=== PATIENT | female | born 1995 | race Caucasian/White ===

== ENCOUNTER 2019-03-09 23:30 | Emergency (ER) | payer OTHER, SELFPAY ==
[~2019-03-09] VITALS: Ht 162.6 cm; Wt 50.0 kg
[2019-03-10] MEDS ORDERED: KEFL500C17 PO (00:28)
[2019-03-10] MEDS ORDERED: CEPHALEXIN 500 MG CAP PO ONE (00:30)
[2019-03-10 00:34] VITALS: BP 126/74
== END 2019-03-10 00:37 | disposition home or self-care (01) ==
LOC: M ED 23:30
DX: J03.90 Acute tonsillitis, unspecified (principal)

== ENCOUNTER 2021-10-01 23:28 | Emergency (ER) | payer SELFPAY ==
[~2021-10-01] VITALS: Ht 162.6 cm; Wt 48.6 kg
[~2021-10-01 23:28] MED LIST: KEFL500C17 PO
[2021-10-01 23:30] VITALS: BP 140/55
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
--- OUTSIDE RECORDS SUMMARY | 2021-10-01 23:38 | CCD ---
Author Author [facility] Organization [facility] Address Unknown Phone Unavailable Care Team Providers Care Accounts Receivable Executive Name Role Phone ARROYO, NITHYA SHAJI RPA-C Unavailable Unavailable ARROYO, NITHYA SHAJI RPA-C Unavailable Unavailable ARROYO, NITHYA SHAJI RPA-C Unavailable Unavailable ARROYO, NITHYA SHAJI RPA-C Unavailable Unavailable ARROYO, NITHYA SHAJI RPA-C Unavailable Unavailable ARROYO, NITHYA SHAJI RPA-C Unavailable Unavailable ARROYO, NITHYA SHAJI RPA-C Unavailable Unavailable ARROYO, NITHYA SHAJI RPA-C Unavailable Unavailable ARROYO, NITHYA SHAJI RPA-C Unavailable Unavailable ARROYO, NITHYA SHAJI RPA-C Unavailable Unavailable ARROYO, NITHYA SHAJI RPA-C Unavailable Unavailable ARROYO, NITHYA SHAJI RPA-C Unavailable Unavailable ARROYO, NITHYA SHAJI RPA-C Unavailable Unavailable ARROYO, NITHYA SHAJI RPA-C Unavailable Unavailable ARROYO, NITHYA SHAJI RPA-C Unavailable Unavailable ARROYO, NITHYA SHAJI RPA-C Unavailable Unavailable ARROYO, NITHYA SHAJI RPA-C Unavailable Unavailable ARROYO, NITHYA SHAJI RPA-C Unavailable Unavailable ARROYO, NITHYA SHAJI RPA-C Unavailable Unavailable ARROYO, NITHYA SHAJI RPA-C Unavailable Unavailable ARROYO, NITHYA SHAJI RPA-C Unavailable Unavailable ARROYO, NITHYA SHAJI RPA-C Unavailable Unavailable ARORYO, NITHYA SHAJI RPA-C Unavailable Unavailable ARROYO, NITHYA SHAJI RPA-C Unavailable Unavailable ARROYO, NITHYA SHAJI RPA-C Unavailable Unavailable ARROYO, NITHYA SHAJI RPA-C Unavailable Unavailable ARROYO, NITHYA SHAJI RPA-C Unavailable Unavailable ARROYO, NITHYA SHAJI RPA-C Unavailable Unavailable ARROYO, NITHYA SHAJI RPA-C Unavailable Unavailable ARROYO, NITHYA SHAJI RPA-C Unavailable Unavailable ARROYO, NITHYA SHAJI RPA-C Unavailable Unavailable ARROYO, NITHYA SHAJI RPA-C Unavailable Unavailable ARROYO, NITHYA SHAJI RPA-C Unavailable Unavailable ARROYO, NITHYA SHAJI RPA-C Unavailable Unavailable ARROYO, NITHYA SHAJI RPA-C Unavailable Unavailable ARROYO, NITHYA SHAJI RPA-C Unavailable Unavailable ARROYO, NITHYA SHAJI RPA-C Unavailable Unavailable ARROYO, NITHYA SHAJI RPA-C Unavailable Unavailable ARROYO, NITHYA SHAJI RPA-C Unavailable Unavailable ARROYO, NITHYA SHAJI RPA-C Unavailable Unavailable ARROYO, NITHYA SHAJI RPA-C Unavailable Unavailable ARROYO, NITHYA SHAJI RPA-C Unavailable Unavailable ARROYO, NITHYA SHAJI RPA-C Unavailable Unavailable CANO, G EDWARD RPA Unavailable Unavailable CANO, G EDWARD RPA Unavailable Unavailable CANO, G EDWARD RPA Unavailable Unavailable CANO, G EDWARD RPA Unavailable Unavailable CANO, G EDWARD RPA Unavailable Unavailable CANO, G EDWARD RPA Unavailable Unavailable CANO, G EDWARD RPA Unavailable Unavailable CANO, G EDWARD RPA Unavailable Unavailable CANO, G EDWARD RPA Unavailable Unavailable CANO, G EDWARD RPA Unavailable Unavailable CANO, G EDWARD RPA Unavailable Unavailable CANO, G EDWARD RPA Unavailable Unavailable CANO, G EDWARD RPA Unavailable Unavailable CANO, G EDWARD RPA Unavailable Unavailable CANO, G EDWARD RPA Unavailable Unavailable CANO, G EDWARD RPA Unavailable Unavailable CANO, G EDWARD RPA Unavailable Unavailable CANO, G EDWARD RPA Unavailable Unavailable CANO, G EDWARD RPA Unavailable Unavailable CANO, G EDWARD RPA Unavailable Unavailable CANO, G EDWARD RPA Unavailable Unavailable CANO, G EDWARD RPA Unavailable Unavailable CANO, G EDWARD RPA Unavailable Unavailable CANO, G EDWARD RPA Unavailable Unavailable CANO, G EDWARD RPA Unavailable Unavailable CANO, G EDWARD RPA Unavailable Unavailable CANO, G EDWARD RPA Unavailable Unavailable CANO, G EDWARD RPA Unavailable Unavailable CANO, G EDWARD RPA Unavailable Unavailable CANO, G EDWARD RPA Unavailable Unavailable CANO, G EDWARD RPA Unavailable Unavailable CANO, G EDWARD RPA Unavailable Unavailable CANO, G EDWARD RPA Unavailable Unavailable CANO, G EDWARD RPA Unavailable Unavailable CANO, G EDWARD RPA Unavailable Unavailable Werner CANO RPA Unavailable Unavailable Werner CANO RPA Unavailable Unavailable Re-disclosure Warning The records that you are about to access may contain information from federally-assisted alcohol or drug abuse programs. If such information is present, then the following federally mandated warning applies: This information has been disclosed to you from records protected by federal confidentiality rules (42 CFR part 2). The federal rules prohibit you from making any further disclosure of this information unless further disclosure is expressly permitted by the written consent of the person to whom it pertains or as otherwise permitted by 42 CFR part 2. A general authorization for the release of medical or other information is NOT sufficient for this purpose. The Federal rules restrict any use of the information to criminally investigate or prosecute any alcohol or drug abuse patient.The records that you are about to access may contain highly sensitive health information, the redisclosure of which is protected by Article 27-F of the [facility] Public Health law. If you continue you may have access to information: Regarding HIV / AIDS; Provided by facilities licensed or operated by the [facility] Office of Mental Health; or Provided by the [facility] Office for People With Developmental Disabilities. If such information is present, then the following [facility] mandated warning applies: This information has been disclosed to you from confidential records which are protected by state law. State law prohibits you from making any further disclosure of this information without the specific written consent of the person to whom it pertains, or as otherwise permitted by law. Any unauthorized further disclosure in violation of state law may result in a fine or snf sentence or both. A general authorization for the release of medical or other information is NOT sufficient authorization for further disc losure. Allergies and Adverse Reactions Type Description Substance Reaction Status Data Source(s ) Allergy to substance Moderate Prozac Nausea ATHE NA ([facility]) Encounters Encounter Providers Location Date Indications Data Source(s ) Outpatient 09/12/2021 02:57:48 PM EDT - 021 03:05:25 PM EDT [facility] ([facility]) Shaji Arroyo, RPA-C: [address] [facility], [facility] [address], [place] [address], Ph. Attender: SHAJI MONROE [facility] Medical 09/06/2021 12:00:00 AM EDT [place] ([facility]) Shaji Arroyo RPA-C: [address], [place] [address], Ph. Attender: SHAJI MONROE [facility] Medical 07/24/2021 12:00:00 AM EDT [place] ([facility]) Shaji Arroyo RPA-C: [address], [place] [address], Ph. Attender: SHAJI MONROE [facility] Medical 07/24/2021 12:00:00 AM EDT [place] ([facility]) Outpatient Attender: LIBBY CANO RPA 06/03 03:55:29 PM EDT - 06/03/2021 05:00:55 PM EDT [facility] ([facility] ) Immunizations Vaccine Date Status Description Data Source(s) Tdap 09/06/2021 02:55:00 PM EDT completed 09/06/2021 0.5 mL [facility]) Medications Medication Brand Name Start Date Product Form Dose Route Admi nistrative Instructions Pharmacy Instructions Status Indications Reaction Description Data Source(s) Escitalopram 10 MG Oral Tablet ESCITALOPRAM OXALATE 09/07/2021 1 2:00:00 AM EDT tablet 30 TAKE ONE TABLET BY MOUTH EVERY D AY TAKE ONE TABLET BY MOUTH EVERY DAY SOLD: 09/08/2021 [facility] 150 mg 09/06/2021 12:00:00 AM EDT tablet 1 TAKE 1 TABLET BY MOUTH ONCE TAKE 1 TABLET BY MOUTH ONCE SOLD: 09/08/2021 [facility] ANA Fe 1.5/30 28 Day Pack 1.5 mg-30 mcg (21)/75 mg ( 7) NORETHINDRONE-E.ESTRADIOL-IRON 08/31/2021 12:00:00 AM EDT tablet 84 TAKE ONE TABLET BY MOUTH EVERY DAY TAKE ONE TABLET BY MOUTH EVERY DAY SOLD: 09/01/2021 [facility] 10 mg 07/26/2021 12:00:00 AM EDT capsule 30 TAKE ONE CAPSULE BY MOUTH EVERY DAY TAKE ONE CAPSULE BY MOUTH EVERY DAY SOLD: 07/27/2021 [facility] 875 mg 06/03/2021 12:00:00 AM EDT tablet 20 TAKE ONE TABLET BY MOUTH TWO TIMES A DAY FOR 10 DAYS TAKE ONE TABLET BY MOUTH TWO TIMES A DAY FOR 10 DAYS SOLD: 06/03/2021 [facility] ANA Fe 1.5/30 28 Day Pack 1.5 mg-30 mcg (21)/75 mg ( 7) NORETHINDRONE-E.ESTRADIOL-IRON 05/17/2021 12:00:00 AM EDT tablet 84 TAKE ONE TABLET BY MOUTH EVERY DAY TAKE ONE TABLET BY MOUTH EVERY DAY SOLD: 06/03/2021 [facility] 100 mg 02/21/2021 12:00:00 AM EDT capsule 10 TAKE ONE CAPSULE BY MOUTH EVERY 12 HOURS FOR 5 DAYS TAKE ONE CAPSULE BY MOUTH EVERY 12 HOURS FOR 5 DAYS SO LD: 02/22/2021 [facility] 100 mg 01/21/2021 12:00:00 AM EST capsule 10 TAKE ONE CAPSULE BY MOUTH TWICE A DAY FOR 5 DAYS TAKE ONE CAPSULE BY MOUTH TWICE A DAY FOR 5 DAYS SOLD: 01/21/2021 [facility] Fluoxetine 10 MG Oral Capsule [Prozac] P rozac 10 mg capsule Take 1 capsule every day by oral route. Prozac 10 mg capsule Take 1 capsule ever y day by oral route. 1 capsule(s) completed fluoxetin e 10 MG Oral Capsule [Prozac] DAVID ([facility]) NITROFURANTOIN, MACROCRYSTALS 25 MG / Ni trofurantoin, Monohydrate 75 MG Oral Capsule nitrofurantoin monohydrate/macrocrystals 100 mg capsule TAKE ONE CAPSULE BY MOUTH EVERY 12 HOURS FOR 5 DAYS nitrofurantoin monohydrate/macrocrystals 100 mg capsule TAKE ONE CAPSULE BY MOUTH EVERY 12 HOURS FOR 5 DAYS completed nitrofurantoin, macr ocrystals 25 MG / nitrofurantoin, monohydrate 75 MG Oral Capsule DAVID ([facility]) NITROFURANTOIN, MACROCRYSTALS 25 MG / Ni trofurantoin, Monohydrate 75 MG Oral Capsule nitrofurantoin monohydrate/macrocrystals 100 mg capsule TAKE ONE CAPSULE BY MOUTH EVERY 12 HOURS FOR 5 DAYS nitrofurantoin monohydrate/macrocrystals 100 mg capsule TAKE ONE CAPSULE BY MOUTH EVERY 12 HOURS FOR 5 DAYS completed nitrofurantoin, macr ocrystals 25 MG / nitrofurantoin, monohydrate 75 MG Oral Capsule DAV[facility] ([facility]) Amoxicillin 875 MG Oral Tablet amoxicill in 875 mg tablet TAKE ONE TABLET BY MOUTH TWO TIMES A DAY FOR 10 DAYS amoxicillin 875 mg tablet TAKE ONE TABLE T BY MOUTH TWO TIMES A DAY FOR 10 DAYS comp leted amoxicillin 875 MG Oral Tablet [facility] ([facility]) Amoxicillin 875 MG Oral Tablet amoxicill in 875 mg tablet TAKE ONE TABLET BY MOUTH TWO TIMES A DAY FOR 10 DAYS amoxicillin 875 mg tablet TAKE ONE TABLE T BY MOUTH TWO TIMES A DAY FOR 10 DAYS comp leted amoxicillin 875 MG Oral Tablet [place] ([facility]) Insurance Providers Payer name Policy type / Coverage type Policy ID Covered democrat ID Covered democrat's relationship to gordon Policy Gordon Plan Information [email or web address] [id number] Self [id number] [employer] [id number] Self [id number] SELF PAY ONLY [id number] [facility] [id number] [facility] [id number] Problems, Conditions, and Diagnoses No Information Surgeries/Procedures No Information Results ID Date Data Source [id number] 09/12/2021 03:15:00 PM EDT [facility] Name Value Range Interpretation Code Description Data Bozena rce(s) Supporting Document(s) SARS-CoV-2 RNA Resp Ql JULIANA+probe NOT DETECTED [facility] This lab was ordered by GREG winslow and reported by GREG Brown. ID Date Data Source [id number] 09/06/2021 02:44:00 PM EDT [place] ([facility]) Name Value Range Interpretation Code Description Data Bozena rce(s) Supporting Document(s) bilirubin neg Bilirubin [place] ([facility]) leukocytes neg Leukocytes [place] ([facility]) blood neg Blood [facility] ([facility]) glucose neg Glucose [facility] ([facility]) nitrite neg Nitrite [facility] ([facility]) ketone neg Ketone [facility] ([facility]) specific gravity Specific [place] AT [facility] ([facility]) protein neg Protein [facility] ([facility]) pH Ph [facility] ([facility]) urobilinogen Urobilinogen [facility] ([facility]) ID Date Data Source [id number] 09/06/2021 02:30:00 PM EDT [facility] ([facility]) Name Value Range Interpretation Code Description Data Bozena rce(s) Supporting Document(s) Bacteria identified in Urine by Culture Culture, Urine, Routine [facility] ([facility]) ID Date Data Source [id number] 09/06/2021 02:30:00 PM EDT [facility] ([facility]) Name Value Range Interpretation Code Description Data Bozena rce(s) Supporting Document(s) Service comment Comment [facility] ([facility]) Procedure Social History No Information Vital Signs ID Date Data Source UNK Name Value Range Interpretation Code Description Data Source(s) Diastolic blood pressure 74 mm[Hg] 74 mm[Hg] [facility] ([facility]) Body height 63 [in_i] 63 [in_i] [facility] ([facility]) Body mass index (BMI) [Ratio] 18.9 kg/m2 18.9 k g/m2 [facility] ([facility]) Systolic blood pressure 109 mm[Hg] 109 mm[Hg] A THENA ([facility]) Body weight 1705.6 [oz_av] 1705.6 [oz_av] ATHEN A ([facility]) Diastolic blood pressure 76 mm[Hg] 76 mm[Hg] [facility] ([facility]) Body height 63 [in_i] 63 [in_i] [facility] ([facility]) Body mass index (BMI) [Ratio] 19 kg/m2 19 kg/ m2 [facility] ([facility]) Systolic blood pressure 116 mm[Hg] 116 mm[Hg] A BARB ([facility]) Body weight 1712 [oz_av] 1712 [oz_av] DAVID ([facility]) Diastolic blood pressure 76 mm[Hg] 76 mm[Hg] DAV[facility] ([facility]) Body height 63 [in_i] 63 [in_i] [facility] ([facility]) Body mass index (BMI) [Ratio] 19 kg/m2 19 kg/ m2 [facility] ([facility]) Systolic blood pressure 116 mm[Hg] 116 mm[Hg] A BARB ([facility]) Body weight 1712 [oz_av] 1712 [oz_av] [facility]ID ([facility]) Patient Treatment Plan of Care Planned Activity Planned Date Details Description Data Source (s) Fluoxetine 10 MG Oral Capsule [Prozac] [facility] ([facility]) NITROFURANTOIN, MACROCRYSTALS 25 MG / Ni trofurantoin, Monohydrate 75 MG Oral Capsule [facility] ([facility]) Amoxicillin 875 MG Oral Tablet [facility] ([facility]) NITROFURANTOIN, MACROCRYSTALS 25 MG / Ni trofurantoin, Monohydrate 75 MG Oral Capsule [facility] ([facility]) Amoxicillin 875 MG Oral Tablet [facility] ([facility])
--- OUTSIDE RECORDS SUMMARY | 2021-10-02 03:07 | CCD ---
Author Author [facility] Organization [facility] Address Unknown Phone Unavailable Care Team Providers Care Acute Dialysis Nurse Name Role Phone ARROYO, NITHYA SHAJI RPA-C Unavailable Unavailable ARROYO, NITHYA SHAJI RPA-C Unavailable Unavailable ARROYO, NITHYA SHAJI RPA-C Unavailable Unavailable ARROYO, NITHYA SHAJI RPA-C Unavailable Unavailable ARROYO, NITHYA SHAJI RPA-C Unavailable Unavailable ARROYO, NITHYA SHAJI RPA-C Unavailable Unavailable ARROYO, NITYHA SHAJI RPA-C Unavailable Unavailable ARROYO, NITHYA SHAJI [...] ARROYO, NITHYA SHAJI RPA-C Unavailable Unavailable ARROYO, NITHAY SHAJI RPA-C Unavailable Unavailable ARROYO, NITHYA SHAJI [...] is protected by Article 27-F of the [facility] Public Health law. If you continue you may have access to information: Regarding HIV / AIDS; Provided by facilities licensed or operated by the [facility] Office of Mental Health; or Provided by the [facility] Office for People With Developmental Disabilities. If such information is present, then the following [facility] mandated warning applies: This information has [...] law may result in a fine or fdc sentence or both. A general authorization for the release of medical or other information is NOT sufficient authorization for further disc losure. Allergies and Adverse Reactions Type Description Substance Reaction Status Data Source(s ) Allergy to substance Moderate Prozac Nausea ATHE NA ([facility]) Encounters Encounter Providers Location Date Indications Data Source(s ) Outpatient 09/12/2021 02:57:48 PM EDT - 021 03:05:25 PM EDT [facility] ([facility]) Shaji Arroyo, RPA-C: [address] [facility] [address], [facility] [address], [place] [address], Ph. Attender: SHAJI [facility] Medical 09/06/2021 12:00:00 AM EDT [facility] Shaji Arroyo RPA-C: [address], [place] [address], Ph. Attender: SHAJI [facility] Medical 07/24/2021 12:00:00 AM EDT [facility]) Shaji Arroyo RPA-C: [address], [place] [address], Ph. Attender: SHAJI [facility] Medical 07/24/2021 12:00:00 AM EDT [facility]) Outpatient Attender: LIBBY CANO RPA 06/03 03:55:29 PM EDT - 06/03/2021 05:00:55 PM EDT [facility] ([facility] ) Immunizations Vaccine Date Status Description Data Source(s) Tdap 09/06/2021 02:55:00 PM EDT completed 09/06/2021 0.5 mL [facility]) Medications Medication Brand Name Start Date Product [...] A DAY FOR 10 DAYS SOLD: 06/03/2021 [facility] ANA Fe 1.5/30 28 Day Pack 1.5 mg-30 mcg (21)/75 mg ( 7) NORETHINDRONE-E.ESTRADIOL-IRON 05/17/2021 12:00:00 AM EDT tablet 84 TAKE ONE TABLET BY MOUTH EVERY DAY TAKE ONE TABLET BY MOUTH EVERY DAY SOLD: 06/03/2021 [facility] 100 mg 02/21/2021 12:00:00 AM EDT [...] A DAY FOR 5 DAYS SOLD: 01/21/2021 [facility] Fluoxetine 10 MG Oral Capsule [Prozac] P rozac 10 mg capsule Take 1 capsule every day by oral route. Prozac 10 mg capsule Take 1 capsule ever y day by oral route. 1 capsule(s) completed fluoxetin e 10 MG Oral Capsule [Prozac] DAVID ([facility]) NITROFURANTOIN, MACROCRYSTALS 25 MG / Ni trofurantoin, Monohydrate 75 MG Oral Capsule nitrofurantoin monohydrate/macrocrystals 100 mg capsule TAKE ONE CAPSULE BY MOUTH EVERY 12 HOURS FOR 5 DAYS nitrofurantoin monohydrate/macrocrystals 100 mg capsule TAKE ONE CAPSULE BY MOUTH EVERY 12 HOURS FOR 5 DAYS completed nitrofurantoin, macr ocrystals 25 MG / nitrofurantoin, monohydrate 75 MG Oral Capsule DAV[facility] ([facility]) NITROFURANTOIN, MACROCRYSTALS 25 MG / Ni trofurantoin, Monohydrate 75 MG Oral Capsule nitrofurantoin monohydrate/macrocrystals 100 mg capsule TAKE ONE CAPSULE BY MOUTH EVERY 12 HOURS FOR 5 DAYS nitrofurantoin monohydrate/macrocrystals 100 mg capsule TAKE ONE CAPSULE BY MOUTH EVERY 12 HOURS FOR 5 DAYS completed nitrofurantoin, macr ocrystals 25 MG / nitrofurantoin, monohydrate 75 MG Oral Capsule DAVID ([facility]) Amoxicillin 875 MG Oral Tablet amoxicill in 875 mg tablet TAKE ONE TABLET BY MOUTH TWO TIMES A DAY FOR 10 DAYS amoxicillin 875 mg tablet TAKE ONE TABLE T BY MOUTH TWO TIMES A DAY FOR 10 DAYS comp leted amoxicillin 875 MG Oral Tablet DAVID ([facility]) Amoxicillin 875 MG Oral Tablet amoxicill in 875 mg tablet TAKE ONE TABLET BY MOUTH TWO TIMES A DAY FOR 10 DAYS amoxicillin 875 mg tablet TAKE ONE TABLE T BY MOUTH TWO TIMES A DAY FOR 10 DAYS comp leted amoxicillin 875 MG Oral Tablet [place] ([facility]) Insurance Providers Payer name Policy type / Coverage type Policy ID Covered green party ID Covered green party's relationship to gordon Policy Gordon Plan Information [employer] [id number] Self [id number] [employer] [id number] Self [id number] SELF PAY ONLY [id number] [facility] [id number] [facility] [id number] Problems, Conditions, and Diagnoses No Information Surgeries/Procedures No Information Results ID Date Data Source [id number] 09/12/2021 03:15:00 PM EDT [facility] Name Value Range Interpretation Code Description Data Bozena rce(s) Supporting Document(s) SARS-CoV-2 RNA Resp Ql JULIANA+probe NOT DETECTED [facility] This lab was ordered by GREG winslow and reported by GREG Brown. ID Date Data Source [id number] 09/06/2021 02:44:00 PM EDT [place] ([facility]) Name Value Range Interpretation Code Description Data Bozena rce(s) Supporting Document(s) bilirubin neg Bilirubin [place] ([facility]) leukocytes neg Leukocytes [place] ([facility]) blood neg Blood DAVID ([facility]) glucose neg Glucose [facility] ([facility]) nitrite neg Nitrite [facility] ([facility]) ketone neg Ketone [facility] ([facility]) specific gravity Specific [place] [facility] ([facility]) protein neg Protein DAVID ([facility]) pH Ph [facility] ([facility]) urobilinogen Urobilinogen [facility] ([facility]) ID Date Data Source [id number] 09/06/2021 02:30:00 PM EDT DAV[facility] ([facility]) Name Value Range Interpretation Code Description Data Bozena rce(s) Supporting Document(s) Bacteria identified in Urine by Culture Culture, Urine, Routine DAVID ([facility]) ID Date Data Source [id number] 09/06/2021 02:30:00 PM EDT DAVID ([facility]) Name Value Range Interpretation Code Description Data Bozena rce(s) Supporting Document(s) Service comment Comment DAVID ([facility]) Procedure Social History No Information Vital Signs ID Date Data Source UNK Name Value Range Interpretation Code Description Data Source(s) Diastolic blood pressure 74 mm[Hg] 74 mm[Hg] DAVID ([facility]) Body height 63 [in_i] 63 [in_i] DAVID ([facility]) Body mass index (BMI) [Ratio] 18.9 kg/m2 18.9 k g/m2 DAV[facility] ([facility]) Systolic blood pressure 109 mm[Hg] 109 mm[Hg] A THENA ([facility]) Body weight 1705.6 [oz_av] 1705.6 [oz_av] ATHEN A ([facility]) Diastolic blood pressure 76 mm[Hg] 76 mm[Hg] DAVID ([facility]) Body height 63 [in_i] 63 [in_i] DAVID ([facility]) Body mass index (BMI) [Ratio] 19 kg/m2 19 kg/ m2 DAV[facility] ([facility]) Systolic blood pressure 116 mm[Hg] 116 mm[Hg] A BARB ([facility]) Body weight 1712 [oz_av] 1712 [oz_av] DAVID ([facility]) Diastolic blood pressure 76 mm[Hg] 76 mm[Hg] DAVID ([facility]) Body height 63 [in_i] 63 [in_i] DAVID ([facility]) Body mass index (BMI) [Ratio] 19 kg/m2 19 kg/ m2 DAV[facility] ([facility]) Systolic blood pressure 116 mm[Hg] 116 mm[Hg] A BARB ([facility]) Body weight 1712 [oz_av] 1712 [oz_av] DAVID ([facility]) Patient Treatment Plan of Care Planned Activity Planned Date Details Description Data Source (s) Fluoxetine 10 MG Oral Capsule [Prozac] [facility] ([facility]) NITROFURANTOIN, MACROCRYSTALS 25 MG / Ni trofurantoin, Monohydrate 75 MG Oral Capsule DAV[facility] ([facility]) Amoxicillin 875 MG Oral Tablet DAV[facility] ([facility]) NITROFURANTOIN, MACROCRYSTALS 25 MG / Ni trofurantoin, Monohydrate 75 MG Oral Capsule DAV[facility] ([facility]) Amoxicillin 875 MG Oral Tablet DAV[facility] ([facility])
== END 2021-10-02 02:50 | disposition left against medical advice (07) ==
LOC: M ED 23:28
DX: Z53.21 Procedure and treatment not carried out due to patient leaving prior to being seen by health care provider (principal)

== ENCOUNTER → 2023-02-06 | Outpatient (CLI) | payer OTHER, SELFPAY ==
[~2023-02-06] MED LIST changes: +LARI1TAB; +LEXA1TAB2 PO
== END ==
LOC: M LABSMTC 07:37
PROVIDERS: ATTEND Anesthesiology
DX: Z01.812 Encounter for preprocedural laboratory examination (principal); Z20.822 Contact with and (suspected) exposure to COVID-19

== ENCOUNTER 2023-02-11 08:03 | Day surgery (SDC) | payer OTHER ==
[~2023-02-11] VITALS: Ht 160 cm; Wt 44.9 kg
[~2023-02-11 08:03] MED LIST changes: +HYDR-643 PO; +NS 1,000 ML IV ONE
[2023-02-11] MEDS ORDERED: propofoL 200 MG/20 ML VIAL As Ordered ONE (08:26)
[2023-02-11] MEDS ORDERED: LIDOCAINE 2% 100MG/5ML SDV (FOR ANES.) As Ordered ONE (08:26)
[2023-02-11 09:25] VITALS: BP 102/66
== END 2023-02-11 09:31 | disposition home or self-care (01) ==
LOC: M OPP 08:03
PROVIDERS: ATTEND Surgery
DX: K64.1 Second degree hemorrhoids (principal); K92.1 Melena; Z79.3 Long term (current) use of hormonal contraceptives; Z79.52 Long term (current) use of systemic steroids; Z79.899 Other long term (current) drug therapy; Z88.8 Allergy status to other drugs, medicaments and biological substances

== ENCOUNTER → 2023-02-25 | Outpatient (CLI) | payer OTHER ==
[~2023-02-25] MED LIST changes: -NS 1,000 ML IV ONE
== END ==
LOC: M PLAIMG 13:08
PROVIDERS: ATTEND Physician Assistant
DX: R07.81 Pleurodynia (principal)

== ENCOUNTER → 2023-03-02 | Outpatient (REF) | payer OTHER ==
[2023-03-02 17:55] LABS: GC DNA AMPLIFICATION NEGATIVE (NEGATIVE)
[2023-03-02 20:36] LABS: MEAN CORPUSCULAR HGB CONC 33.3 g/dl (32.0-36.5); MEAN CORPUSCULAR VOLUME 89.9 fl (80.0-96.0); PLATELET COUNT, AUTOMATED 252 10^3/uL (150-450); RED BLOOD COUNT 4.67 10^6/uL (4.00-5.40); WHITE BLOOD COUNT 5.5 10^3/uL (4.0-10.0)
[2023-03-02 20:57] LABS: ALBUMIN 3.6 G/DL (3.2-5.2); ALKALINE PHOSPHATASE 54 U/L (46-116); ALT/SGPT 27 U/L (7.0-40); AST/SGOT 22 U/L (<34); BILIRUBIN,TOTAL 0.5 MG/DL (0.3-1.2); BLOOD UREA NITROGEN 11 MG/DL (9-23); CALCIUM LEVEL 8.8 MG/DL (8.5-10.1); CARBON DIOXIDE LEVEL 25 MMOL/L (20-31); CHLORIDE LEVEL 104 MMOL/L (98-107); CREATININE FOR GFR 0.63 MG/DL (0.55-1.30); GLOMERULAR FILTRATION RATE > 60.0 (>60); GLUCOSE, FASTING 65 MG/DL (60-100); POTASSIUM SERUM 3.9 MMOL/L (3.5-5.1); SODIUM LEVEL 139 MMOL/L (136-145); TOTAL PROTEIN 7.2 G/DL (5.7-8.2)
[2023-03-02 20:58] LABS: THYROID STIMULATING HORMONE 2.193 uIU/ML (0.55-4.78)
[2023-03-02 20:59] LABS: FOLLICLE STIMULATING HORMONE 0.4 mIU/ML; LUTEINIZING HORMONE < 0.1 mIU/ML; TOTAL 25(OH) VITAMIN D 14.8 NG/ML (20.0-100.0)
[2023-03-02 21:00] LABS: PROGESTERONE 0.49 NG/ML
[2023-03-02 21:31] LABS: HEPATITIS C VIRUS ABY INDEX 0.1 INDEX (<0.8)
[2023-03-02 21:35] LABS: ATYPICAL LYMPH 5 % (0-5); BASOPHILS 1 % (0-1); LYMPHOCYTES 33 % (16-44); MONOCYTES 4 % (0-5); NEUTROPHILS 56 % (28-66)
[2023-03-02 21:36] LABS: PLATELET ESTIMATE NORMAL (NORMAL)
[2023-03-02 21:51] LABS: HCG, SERUM QUALITATIVE NEGATIVE (NEGATIVE)
== END ==
LOC: M LAB REF 15:37
PROVIDERS: ATTEND Physician Assistant
DX: Z11.59 Encounter for screening for other viral diseases (principal); K13.70 Unspecified lesions of oral mucosa; K12.1 Other forms of stomatitis; R10.11 Right upper quadrant pain; R11.2 Nausea with vomiting, unspecified; R63.0 Anorexia; R53.81 Other malaise; R53.83 Other fatigue; N91.2 Amenorrhea, unspecified; E55.9 Vitamin D deficiency, unspecified

== ENCOUNTER → 2023-04-03 | Outpatient (CLI) | payer OTHER | LOC: M RAD 08:11 | PROVIDERS: ATTEND Physician Assistant | DX: R10.11 Right upper quadrant pain (principal); R63.0 Anorexia; R11.2 Nausea with vomiting, unspecified ==

== ENCOUNTER → 2023-07-08 | Outpatient (REF) | payer OTHER | LOC: M SFHCWAGY 17:16 | PROVIDERS: ATTEND Nurse Practitioner Family | DX: Z12.4 Encounter for screening for malignant neoplasm of cervix (principal) ==

== ENCOUNTER → 2024-05-25 | Outpatient (REF) | payer OTHER ==
[2024-05-25 18:48] LABS: HEMATOCRIT 42.1 % (36.0-47.0); HEMOGLOBIN 14.1 g/dl (12.0-15.5); MEAN CORPUSCULAR HEMOGLOBIN 31.8 pg (27.0-33.0); MEAN CORPUSCULAR HGB CONC 33.5 g/dl (32.0-36.5); MEAN CORPUSCULAR VOLUME 94.8 fl (80.0-96.0); PLATELET COUNT, AUTOMATED 248 10^3/uL (150-450); RED BLOOD COUNT 4.44 10^6/uL (4.00-5.40); WHITE BLOOD COUNT 8.8 10^3/uL (4.0-10.0)
[2024-05-25 19:23] LABS: FOLATE 15.8 NG/ML (>5.4); TOTAL 25(OH) VITAMIN D 25.3 NG/ML (20.0-100.0)
[2024-05-25 19:25] LABS: ALKALINE PHOSPHATASE 47 U/L (46-116); ALT/SGPT < 9 U/L (7.0-40); AST/SGOT < 8 U/L (<34); BILIRUBIN,TOTAL 0.9 MG/DL (0.3-1.2); BLOOD UREA NITROGEN 12 MG/DL (9-23); CARBON DIOXIDE LEVEL 26 MMOL/L (20-31); CHLORIDE LEVEL 109 MMOL/L (98-107); CREATININE FOR GFR 0.66 MG/DL (0.55-1.30); GLOMERULAR FILTRATION RATE > 60.0 (>60); GLUCOSE, FASTING 80 MG/DL (60-100); MAGNESIUM LEVEL 1.9 MG/DL (1.8-2.4); POTASSIUM SERUM 5.1 MMOL/L (3.5-5.1); SODIUM LEVEL 139 MMOL/L (136-145); TOTAL PROTEIN 6.7 G/DL (5.7-8.2); VITAMIN B12 LEVEL 490 PG/ML (211-911)
== END ==
LOC: M LAB REF 16:29
PROVIDERS: ATTEND Physician Assistant
DX: Z68.1 Body mass index [BMI] 19.9 or less, adult (principal); R63.6 Underweight; Z72.4 Inappropriate diet and eating habits; E55.9 Vitamin D deficiency, unspecified

== ENCOUNTER 2024-07-25 13:35 | Emergency (ER) | payer OTHER ==
[~2024-07-25] VITALS: Ht 160 cm; Wt 38.2 kg
[2024-07-25 13:35] VITALS: BP 120/82; TEMP 97.1; O2SAT 97
[~2024-07-25 13:35] MED LIST changes: -NORE1TAB90
[2024-07-25] MEDS ORDERED: NORE1TAB90 (13:52)
[2024-07-25 16:01] LABS: BASO % 0.7 % (0.0-1.0); EOS # 0.1 10^3/uL (0.0-0.5); HEMOGLOBIN 14.3 g/dl (12.0-15.5); LYMPH # 2.4 10^3/uL (1.5-5.0); LYMPH % 39.8 % (24.0-44.0); MEAN CORPUSCULAR HEMOGLOBIN 31.2 pg (27.0-33.0); MEAN CORPUSCULAR VOLUME 91.7 fl (80.0-96.0); MONO # 0.3 10^3/uL (0.0-0.8); NEUTROPHILS # 3.2 10^3/uL (1.5-8.5); NEUTROPHILS % 52.3 % (36.0-66.0); PLATELET COUNT, AUTOMATED 184 10^3/uL (150-450); RED BLOOD COUNT 4.58 10^6/uL (4.00-5.40); WHITE BLOOD COUNT 6.1 10^3/uL (4.0-10.0)
[2024-07-25 16:14] LABS: ERYTHROCYTE SEDIMENTATION RATE < 1 mm/hr (0-20)
[2024-07-25 16:20] LABS: C REACTIVE PROTEIN QUANTITATIV < 0.40 MG/DL (<1.0); LIPASE 31 U/L (12-53)
[2024-07-25 16:22] LABS: ALBUMIN 4.1 G/DL (3.2-5.2); ALKALINE PHOSPHATASE 51 U/L (46-116); ALT/SGPT 11 U/L (7.0-40); AST/SGOT 14 U/L (<34); BILIRUBIN,DIRECT 0.4 MG/DL (<0.4); BILIRUBIN,TOTAL 1.1 MG/DL (0.3-1.2); BLOOD UREA NITROGEN 13 MG/DL (9-23); CALCIUM LEVEL 9.2 MG/DL (8.5-10.1); CARBON DIOXIDE LEVEL 28 MMOL/L (20-31); CHLORIDE LEVEL 108 MMOL/L (98-107); CREATININE FOR GFR 0.75 MG/DL (0.55-1.30); GLOMERULAR FILTRATION RATE > 60.0 (>60); GLUCOSE, FASTING 93 MG/DL (60-100); POTASSIUM SERUM 4.1 MMOL/L (3.5-5.1); SODIUM LEVEL 138 MMOL/L (136-145); TOTAL PROTEIN 6.8 G/DL (5.7-8.2)
[2024-07-25 16:24] LABS: FREE T4 1.28 NG/DL (0.89-1.76); THYROID STIMULATING HORMONE 0.795 uIU/ML (0.55-4.78)
[2024-07-25 16:42] LABS: HCG, SERUM QUALITATIVE NEGATIVE (NEGATIVE)
[2024-07-27 15:17] LABS: ANA SCREEN, IFA POSITIVE (NEGATIVE)
== END 2024-07-25 18:39 | disposition home or self-care (01) ==
LOC: M ED 13:35
DX: K80.50 Calculus of bile duct without cholangitis or cholecystitis without obstruction (principal); K21.9 Gastro-esophageal reflux disease without esophagitis; F41.9 Anxiety disorder, unspecified; F17.200 Nicotine dependence, unspecified, uncomplicated; F12.10 Cannabis abuse, uncomplicated; Z79.899 Other long term (current) drug therapy

== ENCOUNTER → 2024-07-25 | Outpatient (REF) | payer OTHER ==
[~2024-07-25] MED LIST changes: +NORE1TAB90
[2024-08-07 22:18] LABS: DEAMIDATED GLIADIN ABS, IgA < 1.0 U/mL (<15.0); DEAMIDATED GLIADIN ABS, IgG < 1.0 U/mL (<15.0); IMMUNOGLOBULIN A CELIAC 261 mg/dL (47-310); t-TRANSGLUTAMINASE(tTG) IgA < 1.0 U/mL (<15.0); t-TRANSGLUTAMINASE(tTG) IgG < 1.0 U/mL (<15.0)
== END ==
LOC: M LAB REF 16:41
PROVIDERS: ATTEND Physician Assistant
DX: R63.6 Underweight (principal); Z68.1 Body mass index [BMI] 19.9 or less, adult

== ENCOUNTER → 2024-10-06 | Outpatient (CLI) | payer OTHER ==
[~2024-10-06] MED LIST changes: +NORE1TAB90
== END ==
LOC: M RAD 09:25
PROVIDERS: ATTEND Surgery
DX: R10.13 Epigastric pain (principal)
CPT/HCPCS: 78227; A9537

== ENCOUNTER → 2024-11-09 | Outpatient (CLI) | payer OTHER ==
[~2024-11-09] MED LIST changes: +ISOVUE-370 76% 100ML VIAL As Ordered ONE
== END ==
LOC: M RAD 14:07
PROVIDERS: ATTEND Surgery
DX: R10.13 Epigastric pain (principal)
CPT/HCPCS: 74177; Q9967

== ENCOUNTER 2025-01-08 09:12 | Emergency (ER) | payer OTHER ==
[~2025-01-08] VITALS: Ht 160 cm; Wt 40.3 kg
[~2025-01-08 09:12] MED LIST changes: -ISOVUE-370 76% 100ML VIAL As Ordered ONE
[2025-01-08 09:15] VITALS: BP 106/59; TEMP 97.2; O2SAT 96
[2025-01-08] MEDS ORDERED: VENL75CA47 (09:24)
[2025-01-08] MEDS ORDERED: ACET-907 PO (09:25)
[2025-01-08] MEDS ORDERED: NORE-30 PO (09:29)
[2025-01-08] MEDS ORDERED: IBUP-1114 PO (10:33)
[2025-01-08] MEDS ORDERED: METH-1164 PO (10:33)
[2025-01-08] MEDS: IBUPROFEN 400MG TAB PO ONE (10:37)
== END 2025-01-08 10:40 | disposition home or self-care (01) ==
LOC: M ED 09:12
DX: G44.209 Tension-type headache, unspecified, not intractable (principal); F41.9 Anxiety disorder, unspecified; F32.A Depression, unspecified; Z79.899 Other long term (current) drug therapy; Z79.1 Long term (current) use of non-steroidal anti-inflammatories (NSAID)

== ENCOUNTER 2025-01-26 11:14 | Emergency (ER) | payer OTHER ==
[~2025-01-26] VITALS: Ht 160 cm; Wt 42.2 kg
[~2025-01-26 11:14] MED LIST changes: +ACET-907 PO; +IBUP-1114 PO; +METH-1164 PO; +NORE-30 PO; +VENL75CA47
[2025-01-26 16:43] LABS: HEMATOCRIT 38.4 % (36.0-47.0); HEMOGLOBIN 13.2 g/dl (12.0-15.5); MEAN CORPUSCULAR HEMOGLOBIN 31.4 pg (27.0-33.0); MEAN CORPUSCULAR HGB CONC 34.4 g/dl (32.0-36.5); MEAN CORPUSCULAR VOLUME 91.4 fl (80.0-96.0); PLATELET COUNT, AUTOMATED 204 10^3/uL (150-450); WHITE BLOOD COUNT 5.7 10^3/uL (4.0-10.0)
[2025-01-26 17:09] LABS: BLOOD UREA NITROGEN 15 MG/DL (9-23); CALCIUM LEVEL 8.6 MG/DL (8.5-10.1); CARBON DIOXIDE LEVEL 28 MMOL/L (20-31); CHLORIDE LEVEL 105 MMOL/L (98-107); CREATININE FOR GFR 0.56 MG/DL (0.55-1.30); GLOMERULAR FILTRATION RATE > 60.0 (>60); GLUCOSE, FASTING 79 MG/DL (60-100); POTASSIUM SERUM 3.9 MMOL/L (3.5-5.1); SODIUM LEVEL 140 MMOL/L (136-145)
[2025-01-26] MEDS: diphenhydrAMINE 50MG/ML VIAL IV ONE (17:21)
[2025-01-26] MEDS: NS (Normal Saline) 0.9% 1,000 ML IV ONE (17:21)
[2025-01-26] MEDS: METOCLOPRAMIDE INJ 10MG/2ML VIAL IV ONE (17:21)
[2025-01-26] MEDS: KETOROLAC 30 MG/ML 1ML VIAL IV ONE (17:22)
[2025-01-26 17:59] VITALS: O2SAT 100
[2025-01-26 18:00] VITALS: BP 107/64
[2025-01-26 18:30] VITALS: TEMP 97.7
== END 2025-01-26 18:31 | disposition home or self-care (01) ==
LOC: M ED 11:14
DX: R51.9 Headache, unspecified (principal); F12.10 Cannabis abuse, uncomplicated; Z79.1 Long term (current) use of non-steroidal anti-inflammatories (NSAID); Z79.899 Other long term (current) drug therapy
CPT/HCPCS: 70450; 80048; 83735; 84702; 85027; 93041; 94760; 96361; 96374; 96375; 99284; J1200; J1885; J2765